=== PATIENT | male | born 1960 | race Caucasian/White ===

== ENCOUNTER 2016-05-19 21:26 | Emergency (ER) | payer BC ==
[~2016-05-19] VITALS: Ht 177.8 cm; Wt 103.6 kg
[2016-05-19 21:38] VITALS: Ht 177.8 cm; Wt 103.6 kg
[2016-05-19] MEDS ORDERED: predniSONE 20 MG TAB PO STA (22:29)
[2016-05-19] MEDS ORDERED: LEVALBUTEROL (NEB) 1.25 MG/0.5 ML AMP INH STA (22:29)
--- NOTE | 2016-05-19 23:13 | RADRPT ---
PROCEDURE: XR Chest. CLINICAL INDICATION: Cough. TECHNIQUE: Portable AP upright view of the chest was obtained. COMPARISON: None. FINDINGS: The cardiomediastinal silhouette is within normal limits. The lungs are clear. There is no evidenc e for pleural effusion, pneumothorax or pulmonary vascular congestion. The osseous structures are i ntact with no evidence for acute abnormality. RPTAT:HJJR IMPRESSION: No evidence for acute intrathoracic pathology. Physician Syl Date Time Electronically viewed and signed by Physician Syl on 05/19/2016 23:12 JR/
--- NOTE | 2016-05-20 01:10 | RADRPT ---
PROCEDURE: CT brain without contrast. CLINICAL INDICATION: Headache. TECHNIQUE: CT scan of the brain was performed on a multi-detector high-resolution CT scanner. Co ntiguous axial images were obtained from the skull base to the vertex without intravenous contrast. Coronal and sagittal reformatted images were also obtained. Images were reviewed on the PACS works tation. One or more of the following dose reduction techniques were used: - Automated exposure control. - Adjustment of the mA and/or kV according to patient size. - Use of iterative reconstruction technique. Exam CTD/vol = 39.46 mGy. Total exam DLP = 713.51 mGy-cm. COMPARISON: None. FINDINGS: The ventricles and cortical sulci are within normal limits for patient's age. There are no areas of abnormal attenuation within the brain parenchyma. There is no mass effect or midline shift. There is no intracranial hemorrhage or abnormal extra-axial collection. The calvarium is intact. There is no evidence of fracture. There is mild mucoperiosteal disease with in scattered ethmoid air cells bilaterally and left maxillary sinus. Bilateral mastoid air cells ar e clear. IMPRESSION: No acute intracranial abnormality identified. Mild paranasal sinus inflammatory disease. .Prince Cassidy MD, Date Time Electronically viewed and signed by .Prince Cassidy MD, MD on 05/20/2016 01:10 .T/
[2016-05-20] MEDS ORDERED: PRED20TA PO (02:02)
[2016-05-20] MEDS ORDERED: IBUP400T22 PO (02:03)
[2016-05-20] MEDS ORDERED: AZIT250T94 PO (02:03)
[2016-05-20] MEDS ORDERED: ALBU8.5H3 INH (02:03)
[2016-05-20 02:39] VITALS: BP 165/95; PULSE 82; RESP 16
--- NOTE | 2016-05-20 02:56 | ERD ---
ER Documentation Chief Complaint Date/Time DATE: 05/20/16 TIME: 02:44 Chief Complaint C/O HEADACHE AND HIGH BP +COUGH HPI Patient is 55-year-old male with a past medical history of hypertension, hyperlipidemia, essential tremors secondary to alcoholism, now sober for 14 years, who presents to the emergency department with a headache and concerns of elevated blood pressure. Patient states that he has been having systolic blood pressures in the 170s. Patient reports elevated blood pressures since 3 days ago. He states he saw his primary care physician at that time who advised him to keep a list of his blood pressures. Patient states that his medication was not changed. Patient states that his headaches started approximately 3 hours ago. Patient describes the pain to be pounding in nature. Patient denies sudden onset however states it is getting gradually worse. Patient also reporting dizziness. Patient denies any nausea, vomiting, blurry vision, loss of consciousness. Patient states that he has had a cough now for the past 10 days. Patient reports wheezing. Patient states his cough is productive in nature with yellow production. Patient reports occasional nasal congestion. Patient denies any abdominal pain, back pain, neck pain, neck stiffness or loss of consciousness. Patient denies any trauma or falls. ROS All systems reviewed and are negative except as per history of present illness. Medications Home Meds Active Scripts Ibuprofen* (Motrin*) 400 Mg Tab, 400 MG PO Q6, #30 TAB Prov:ROS MAYBERRY PA-C 05/20/16 Azithromycin* (Zithromax*) 250 Mg Tablet, 250 MG PO .ZPACK DIRECTED, #6 TAB TAKE 500 MG (2 TABS) THE FIRST DAY THEN 250 MG (1 TAB) DAYS 2-5 Prov:ROS MAYBERRY PA-C 05/20/16 Albuterol Sulfate* (Proair HFA*) 8.5 Gm Hfa.aer.ad, 2 PUFF INH Q4H Y for WHEEZING AND SOB, #1 INHALER Prov:ROS MAYBERRY PA-C 05/20/16 Prednisone* (Prednisone*) 20 Mg Tab, 40 MG PO DAILY for 4 Days, TAB Prov:ROS MAYBERRY PA-C 05/20/16 Allergies Allergies: Coded Allergies: No Known Allergy (Unverified , 05/19/16) PMhx/Soc Medical and Surgical Hx: pt denies Medical Hx, pt denies Surgical Hx Hx Alcohol Use: No Hx Substance Use: No Hx Tobacco Use: No Smoking Status: Never smoker FmHx Family History: No diabetes Physical Exam Vitals Vital Signs Date Time Temp Pulse Resp B/P Pulse Ox O2 Delivery O2 Flow Rate FiO2 05/20/16 02:39 82 16 165/95 95 05/19/16 23:02 97 18 97 21 05/19/16 21:38 97.6 101 18 171/94 97 Physical Exam GENERAL: Well-developed, well-nourished male. Appears in no acute distress. Speaking in full sentences. HEAD: Normocephalic, atraumatic. No deformities or ecchymosis. EYE: Pupils equal, round, and reactive to light. EOMs intact. No conjunctival erythema. No eye discharge. ENT: External ear without any masses or tenderness. Auditory canals clear bilaterally. TM visualized bilaterally, non-erythematous, non-bulging. Nasal mucosa pink with no discharge. Oropharynx is pink without any tonsillar erythema or exudates. No uvula deviation. No kissing tonsils. NECK: Supple. No meningismus. Normal ROM of the neck. LUNG: Wheezing noted in bilateral lobes. HEART: Regular rate and rhythm. No murmurs, rubs or gallops. ABDOMEN: Soft, nontender, and nondistended. Positive bowel sounds in all four quadrants. No rebound tenderness, no guarding. (-) McBurney's point tenderness. No CVA tenderness. BACK: No midline tenderness. EXTREMITIES: Equal pulses bilaterally. No peripheral clubbing, cyanosis or edema. No unilateral leg swelling. NEUROLOGIC: Alert and oriented x3, cooperative. Mood and affect appropriate to situation. Cranial nerves II through XII are grossly intact. Normal speech. Motor exam: 5/5 strength in upper and lower extremities. Sensory exam: Sensation intact to light touch on all four extremities. Cerebellar function exam: Rapid alternating movements intact. No dysmetria on mwvpjx-oy-wkjf test. Steady gait. No pronator drift. SKIN: Normal color. Warm and dry. No rashes or lesions. Results 24 hrs Current Medications Medications (Trade) Dose Ordered Sig/Dinora Route PRN Reason Start Time Stop Time Status Last Admin Dose Admin Levalbuterol (Xopenex Neb) 5 mg ONCE STAT INH 05/19/16 22:29 05/19/16 22:31 DC 05/19/16 22:55 Prednisone (Prednisone) 40 mg ONCE STAT PO 05/19/16 22:29 05/19/16 22:31 DC 05/19/16 22:45 Procedures/MDM ED COURSE: The patient was stable throughout ED course. I kept the patient and/or family informed of laboratory and diagnostic imaging results throughout the ED course. EKG: Read by Dr. Lieberman, attending physician. EKG shows normal sinus rhythm at a rate of 92 bpm. No arrhythmias, acute ST elevations or T wave changes were noted. Possible left atrial enlargement. Left axis deviation. Incomplete right bundle branch block. Left ventricular hypertrophy. DIAGNOSTIC IMAGING: Read by radiologist. DIAGNOSTIC IMAGING REPORT Patient: STARLA CUADRA : 1960 Age: 55 Sex: M MR #: [id number] DOS: 05/19/162228 Ordering MD: ROS MAYBERRY PA-C Location: [facility] Room/Bed: PROCEDURE: XR Chest. CLINICAL INDICATION: Cough. TECHNIQUE: Portable AP upright view of the chest was obtained. COMPARISON: None. FINDINGS: The cardiomediastinal silhouette is within normal limits. The lungs are clear. There is no evidence for pleural effusion, pneumothorax or pulmonary vascular congestion. The osseous structures are intact with no evidence for acute abnormality. RPTAT:HJJR IMPRESSION: No evidence for acute intrathoracic pathology. Physician Syl Date Time Electronically viewed and signed by Physician Syl on 05/19/2016 23:12 JR/ CC: ROS MAYBERRY PA-C DIAGNOSTIC IMAGING REPORT Patient: STARLA CUADRA : 1960 Age: 55 Sex: M MR #: [id number] DOS: 05/19/162228 Ordering MD: ROS MAYBERRY PA-C Location: [facility] Room/Bed: PROCEDURE: CT brain without contrast. CLINICAL INDICATION: Headache. TECHNIQUE: CT scan of the brain was performed on a multi-detector high- resolution CT scanner. Contiguous axial images were obtained from the skull base to the vertex without intravenous contrast. Coronal and sagittal reformatted images were also obtained. Images were reviewed on the PACS workstation. One or more of the following dose reduction techniques were used: - Automated exposure control. - Adjustment of the mA and/or kV according to patient size. - Use of iterative reconstruction technique. Exam CTD/vol = 39.46 mGy. Total exam DLP = 713.51 mGy-cm. COMPARISON: None. FINDINGS: The ventricles and cortical sulci are within normal limits for patient's age. There are no areas of abnormal attenuation within the brain parenchyma. There is no mass effect or midline shift. There is no intracranial hemorrhage or abnormal extra-axial collection. The calvarium is intact. There is no evidence of fracture. There is mild mucoperiosteal disease within scattered ethmoid air cells bilaterally and left maxillary sinus. Bilateral mastoid air cells are clear. IMPRESSION: No acute intracranial abnormality identified. Mild paranasal sinus inflammatory disease. .Prince Cassidy MD, MD Date Time Electronically viewed and signed by .Prince Cassidy MD, MD on 05/20/2016 01:10 .T/ CC: ROS MAYBERRY PA-C MEDICATIONS GIVEN: Xopenex breathing treatment, prednisone Patient tolerated medication well with no adverse reactions. Upon reexamination , patient was noted to have improved breath sounds. MEDICAL DECISION MAKING: This is a 55-year-old male with a past medical history of hypertension presents to the emergency department a headache, dizziness and cough. Patient states that he has had elevated blood pressure last 3 days. Patient states that his headache developed approximate 3 hours ago. Patient states that he has had his cough for the last 10 days. His cough is productive in nature. Vital signs were reviewed. Patient was afebrile. Patient was not hypoxic. ENT exam was normal. Full neuro exam was normal. Lung exam revealed bilateral lower lobe wheezing. Patient was given a breathing treatment here in the emergency department which did improve his breath sounds. Patient was also given p.o. prednisone. Chest x-ray was unremarkable. EKG was unremarkable. CT brain was negative for acute intracranial abnormality. Given these findings, the patient' s presentation is most consistent with elevated blood pressure and acute bronchitis. Low suspicion for hypertensive emergency. Low suspicion intracranial hemorrhage, intracranial mass, intracranial edema, mass-effect, stroke, ACS, pericarditis, pneumonia, pneumothorax, strep pharyngitis, acute otitis media. PRESCRIPTIONS: Z-Michael, albuterol inhaler, prednisone, ibuprofen DISCHARGE: At this time, patient is stable for discharge and outpatient management. Supportive therapies such as OTC throat lozenges, salt water gurgles, popsicles and jello discussed. I have instructed the patient to follow-up with his/her primary care physician in 1-2 days. I have instructed the patient to promptly return to the ER for any new or worsening symptoms including increased pain, swelling, fever, nausea, vomiting, weakness or difficulty breathing. The patient and/or family expressed understanding of and agreement with this plan. All questions were answered. Home care instructions were provided. Patient's blood pressure was elevated (>120/80) but appears stable without evidence of hypertensive emergency, hypertensive urgency or end-organ failure. I had discussion with the patient about the risks of hypertension. I have advised the patient to follow up with his/her primary care physician for outpatient monitoring and treatment for hypertension in 2-3 days. I have instructed the patient to return to the ER for any new or worsening symptoms including chest pain, shortness of breath, headache, blurred vision, confusion, nausea, vomiting or LOC. Departure Diagnosis: Primary Impression: Acute bronchitis Bronchitis organism: unspecified organism Qualified Code: J20.9 - Acute bronchitis, unspecified organism Additional Impressions: Headache Headache type: unspecified Headache chronicity pattern: unspecified pattern Intractability: not intractable Qualified Code: R51 - Nonintractable headache, unspecified chronicity pattern, unspecified headache type Hypertension Hypertension type: unspecified secondary hypertension Qualified Code: I15.9 - Secondary hypertension Condition: Stable Patient Instructions: Acute Bronchitis, Self-Care for Headaches Referrals: COMMUNITY CLINICS YOU HAVE RECEIVED A MEDICAL SCREENING EXAM AND THE RESULTS INDICATE THAT YOU DO NOT HAVE A CONDITION THAT REQUIRES URGENT TREATMENT IN THE EMERGENCY DEPARTMENT. FURTHER EVALUATION AND TREATMENT OF YOUR CONDITION CAN WAIT UNTIL YOU ARE SEEN IN YOUR DOCTORS OFFICE WITHIN THE NEXT 1-2 DAYS. IT IS YOUR RESPONSIBILITY TO MAKE AN APPOINTMENT FOR FOLOW-UP CARE. IF YOU HAVE A PRIMARY DOCTOR --you should call your primary doctor and schedule an appointment IF YOU DO NOT HAVE A PRIMARY DOCTOR YOU CAN CALL OUR PHYSICIAN REFERRAL HOTLINE AT IF YOU CAN NOT AFFORD TO SEE A PHYSICIAN YOU CAN CHOSE FROM THE FOLLOWING [facility] [address] [facility] [address] [facility] [address] [facility] [address] [facility] [address] [facility]. [facility] [address] [facility] YOU HAVE RECEIVED A MEDICAL SCREENING EXAM AND THE RESULTS INDICATE THAT YOU DO NOT HAVE A CONDITION THAT REQUIRES URGENT TREATMENT IN THE EMERGENCY DEPARTMENT. FURTHER EVALUATION AND TREATMENT OF YOUR CONDITION CAN WAIT UNTIL YOU ARE SEEN IN YOUR DOCTORS OFFICE WITHIN THE NEXT 1-2 DAYS. IT IS YOUR RESPONSIBILITY TO MAKE AN APPOINTMENT FOR FOLOW-UP CARE. IF YOU HAVE A PRIMARY DOCTOR --you should call your primary doctor and schedule and appointment IF YOU DO NOT HAVE A PRIMARY DOCTOR YOU CAN CALL OUR PHYSICIAN REFERRAL HOTLINE AT . IF YOU CAN NOT AFFORD TO SEE A PHYSICIAN YOU CAN CHOSE FROM THE FOLLOWING [facility] INSTITUTIONS: [facility] [address] [place] [address] [place] [address] [place] [address] [facility] [address] [place] [address] Additional Instructions: Call your primary care doctor TOMORROW for an appointment during the next 1-2 days.See the doctor sooner or return here if your condition worsens before your appointment time. Follow-up with her primary care physician about your blood pressure. Patient may need changes to blood pressure medication. ROS MAYBERRY PA-C May 20, 2016 02:56
== END 2016-05-20 02:44 | disposition home or self-care (01) ==
LOC: FTE 21:26
DX: J20.9 Acute bronchitis, unspecified (principal); I15.9 Secondary hypertension, unspecified; R05 Cough; R42 Dizziness and giddiness
CPT/HCPCS: 70450; 71010; 93005; 94644; 99285; J7512